=== PATIENT | female | born 1960 | race Caucasian/White ===

== ENCOUNTER 2016-10-31 12:32 | Emergency (ER) | payer BC ==
--- NOTE | 2016-10-31 12:51 | ER Document Report ---
ED Medical Screen (RME) - General Chief Complaint: Leg Pain Stated Complaint: RIGHT LEG PAIN Mode of Arrival: Ambulatory Information source: Patient Notes: 55 y/o F presents to ED c/o intermittent pain to right posterior lower leg/knee area. Denies swelling, redness, or paresthesias. I have greeted and performed a rapid initial assessment of this patient. A comprehensive ED assessment and evaluation of the patient, analysis of test results and completion of the medical decision making process will be conducted by additional ED providers. TRAVEL OUTSIDE OF THE [place] IN LAST 30 DAYS: No - Related Data Allergies/Adverse Reactions: No Known Allergies Allergy (Unverified 10/31/16 12:42) Past Medical History - Social History Chew tobacco use (# tins/day): No Frequency of alcohol use: None Drug Abuse: None Renal/ Medical History: Denies: Hx Peritoneal Dialysis Physical Exam - Vital signs Vitals: Temp Pulse Resp BP Pulse Ox 97.8 F 94 16 171/82 H 99 10/31/16 12:39 10/31/16 12:39 10/31/16 12:39 10/31/16 12:39 10/31/16 12:39 - General General appearance: Appears well, Alert In distress: None - Respiratory Respiratory status: No respiratory distress - Cardiovascular Rhythm: Regular Pulses: Normal: Radial Normal capillary refill: Yes Course - Vital Signs Vital signs: Temp Pulse Resp BP Pulse Ox 97.8 F 94 16 171/82 H 99 10/31/16 12:39 10/31/16 12:39 10/31/16 12:39 10/31/16 12:39 10/31/16 12:39
--- NOTE | 2016-10-31 13:31 | ER Document Report ---
ED Extremity Problem, Lower - General Chief Complaint: Leg Pain Stated Complaint: RIGHT LEG PAIN Mode of Arrival: Ambulatory TRAVEL OUTSIDE OF THE [place] IN LAST 30 DAYS: No - Related Data Allergies/Adverse Reactions: No Known Allergies Allergy (Unverified 10/31/16 12:42) Past Medical History - General Information source: Patient - Social History Smoking Status: Never Smoker Chew tobacco use (# tins/day): No Frequency of alcohol use: None Drug Abuse: None Patient has suicidal ideation: No Patient has homicidal ideation: No Renal/ Medical History: Denies: Hx Peritoneal Dialysis Physical Exam - Vital signs Vitals: Temp Pulse Resp BP Pulse Ox 97.8 F 94 16 171/82 H 99 10/31/16 12:39 10/31/16 12:39 10/31/16 12:39 10/31/16 12:39 10/31/16 12:39 Course - Re-evaluation Re-evalutation: 10/31/16 13:[address] Pacheco regarding patient presentation. Agrees plan for Doppler study of lower extremity. - Vital Signs Vital signs: Temp Pulse Resp BP Pulse Ox 97.8 F 94 16 171/82 H 99 10/31/16 12:39 10/31/16 12:39 10/31/16 12:39 10/31/16 12:39 10/31/16 12:39
--- NOTE | 2016-10-31 13:33 | ER Document Report ---
ED Extremity Problem, Lower - General Chief Complaint: Leg Pain Stated Complaint: RIGHT LEG PAIN Mode of Arrival: Ambulatory Information source: Patient Notes: Patient presents complaining of right popliteal leg pain off and on for several months that worsened over the past 3 days. Patient denies any chest pain or shortness of breath. Patient denies any recent immobilization, history of DVT, or history of PE. Patient is concerned about possible DVT and would like a Doppler performed. TRAVEL OUTSIDE OF THE [place] IN LAST 30 DAYS: No - HPI Patient complains to provider of: Pain, Swelling Location: Knee - Popliteal, Leg - Calf Occurred: Other - Off and on for several months, worse over the past 3 days Onset/Duration: Worse Quality of pain: Achy Pain Level: 3 Context: denies: Recent immobilization, Recent travel Recent injury: No Associated symptoms: Painful ambulation Exacerbated by: Nothing Relieved by: Nothing - Related Data Allergies/Adverse Reactions: No Known Allergies Allergy (Unverified 10/31/16 12:42) Past Medical History - General Information source: Patient - Social History Smoking Status: Never Smoker Chew tobacco use (# tins/day): No Frequency of alcohol use: None Drug Abuse: None Occupation: [employer] Lives with: Family Family History: Reviewed & Not Pertinent Patient has suicidal ideation: No Patient has homicidal ideation: No - Past Medical History Cardiac Medical History: Reports: Hx Hypertension Renal/ Medical History: Denies: Hx Peritoneal Dialysis Malignancy Medical History: Reports: Hx Colorectal Cancer Psychiatric Medical History: Reports: Hx Anxiety Past Surgical History: Reports: Hx Bowel Surgery Review of Systems - Review of Systems Constitutional: No symptoms reported. denies: Fever, Recent illness EENT: No symptoms reported Cardiovascular: Edema - Right lower extremity. denies: Chest pain, Palpitations Respiratory: No symptoms reported. denies: Cough, Short of breath Gastrointestinal: No symptoms reported. denies: Abdominal pain, Nausea, Vomiting Genitourinary: No symptoms reported Female Genitourinary: No symptoms reported Musculoskeletal: Muscle pain - Right lower extremity. denies: Back pain Skin: No symptoms reported Hematologic/Lymphatic: No symptoms reported Neurological/Psychological: No symptoms reported Physical Exam - Vital signs Vitals: Temp Pulse Resp BP Pulse Ox 97.8 F 94 16 171/82 H 99 10/31/16 12:39 10/31/16 12:39 10/31/16 12:39 10/31/16 12:39 10/31/16 12:39 - General General appearance: Appears well, Alert In distress: None - HEENT Head: Normocephalic, Atraumatic Eyes: Normal Nasal: Normal Mouth/Lips: Normal Neck: Normal, Supple. No: Lymphadenopathy - Respiratory Respiratory status: No respiratory distress Chest status: Nontender Breath sounds: Normal. No: Rales, Rhonchi, Stridor, Wheezing Chest palpation: Normal - Cardiovascular Rhythm: Regular Heart sounds: S1 appreciated, S2 appreciated Murmur: No - Back Back: Normal. No: CVA tenderness - Extremities General upper extremity: Normal inspection, Normal ROM General lower extremity: Edema - 1+ right lower extremity, Normal color, Normal ROM, Normal strength, Normal temperature Calf: Tender - Proximal right calf tenderness - Neurological Neuro grossly intact: Yes Cognition: Normal [place] Coma Scale Eye Opening: Spontaneous [place] Coma Scale Verbal: Oriented [place] Coma Scale Motor: Obeys Commands [place] Coma Scale Total: 15 - Psychological Associated symptoms: Normal affect, Normal mood - Skin Skin Temperature: Warm Skin Moisture: Dry Skin Color: Normal Course - Re-evaluation Re-evalutation: 10/31/16 13:[address] Pacheco regarding patient presentation, agrees with plan for Doppler study. 10/31/16 16:44 Dr. Smart called report results for Doppler negative for DVT 10/31/16 16:44 Discussed plan of care with patient, patient advised to follow-up with her primary doctor for recheck. Discussed worsening signs or symptoms that patient should return to [facility] for. Patient verbalized understanding of instructions and plan of care. - Vital Signs Vital signs: Temp Pulse Resp BP Pulse Ox 98.3 F 70 16 150/75 H 97 10/31/16 16:54 10/31/16 16:54 10/31/16 16:54 10/31/16 16:54 10/31/16 16:54 - Laboratory Result Diagrams: 10/31/16 14:30 10/31/16 14:30 Laboratory results interpreted by me: 10/31/16 14:30 Hct 35.9 L RDW 14.3 H Labs- Entire Visit 10/31/16 10/31/16 10/31/16 14:30 14:30 14:30 WBC 7.7 RBC 4.02 Hgb 12.1 Hct 35.9 L MCV 89 MCH 30.0 MCHC 33.7 RDW 14.3 H Plt Count 306 Seg Neutrophils % 56.1 Lymphocytes % 35.1 Monocytes % 7.5 Eosinophils % 1.1 Basophils % 0.2 Absolute Neutrophils 4.3 Absolute Lymphocytes 2.7 Absolute Monocytes 0.6 Absolute Eosinophils 0.1 Absolute Basophils 0.0 PT 12.0 INR 0.86 APTT 24.5 Sodium 142.8 Potassium 3.8 Chloride 106 Carbon Dioxide 26 Anion Gap 11 BUN 13 Creatinine 0.53 Est GFR ( Amer) > 60 Est GFR (Non-Af Amer) > 60 Glucose 86 Calcium 9.8 Total Bilirubin 0.5 Direct Bilirubin 0.0 AST 28 ALT 52 Alkaline Phosphatase 85 Total Protein 6.6 Albumin 4.0 10/31/16 18:14 - Diagnostic Test Radiology reviewed: Reports reviewed Discharge - Discharge Clinical Impression: Hx of essential hypertension, Right calf pain Condition: Stable Disposition: HOME, SELF-CARE Instructions: High Blood Pressure ([facility]), Muscle Strain ([facility]), Oral Narcotic Medication ([facility]) Additional Instructions: Return immediately for any new or worsening symptoms Followup with your primary care provider, call tomorrow to make a followup appointment Follow-up with your primary care provider for recheck. Your blood pressure was elevated today, recheck with primary doctor to have this rechecked. Your doctor may need to adjust your blood pressure medications. Prescriptions: Hydrocodone/Acetaminophen [[place] 5-325 Tablet] 1 each PO Q8 PRN #12 tablet PRN Reason: Forms: Elevated Blood Pressure, Return to Work Referrals: LANDRY IVERSON MD [Primary Care Provider] - Follow up tomorrow
[2016-10-31 14:48] LABS: ABSOLUTE EOSINOPHILS # (AUTO) 0.1 10^3/uL (0.0-0.6); ABSOLUTE LYMPHOCYTES (AUTO) 2.7 10^3/uL (0.5-4.7); ABSOLUTE MONOCYTES (AUTO) 0.6 10^3/uL (0.1-1.4); ABSOLUTE NEUT (AUTO) 4.3 10^3/uL (1.7-8.2); BASOPHILS % (AUTO) 0.2 % (0-2); EOSINOPHILS % (AUTO) 1.1 % (0-6); HEMATOCRIT 35.9 % (36.0-47.0); HEMOGLOBIN 12.1 g/dL (12.0-15.5); HGB HCT DIFFERENCE 0.4; LYMPHOCYTES % (AUTO) 35.1 % (13-45); MEAN CORPUSCULAR HGB CONC 33.7 g/dL (32.0-36.0); MEAN CORPUSCULAR VOLUME 89 fl (80-97); MONOCYTES % (AUTO) 7.5 % (3-13); RED BLOOD COUNT 4.02 10^6/uL (3.72-5.28); RED CELL DISTRIBUTION WIDTH 14.3 % (11.5-14.0); SEGMENTED NEUTROPHILS % (AUTO) 56.1 % (42-78); WHITE BLOOD COUNT 7.7 10^3/uL (4.0-10.5)
[2016-10-31 14:58] LABS: PARTIAL THROMBOPLASTIN TIME 24.5 SEC (23.5-35.8)
[2016-10-31 15:12] LABS: ALANINE AMINOTRANSFERASE 52 U/L (9-52); ALKALINE PHOSPHATASE 85 U/L (38-126); ANION GAP 11 (5-19); ASPARTATE AMINO TRANSFERASE 28 U/L (14-36); BILIRUBIN,TOTAL 0.5 mg/dL (0.2-1.3); BLOOD UREA NITROGEN 13 mg/dL (7-20); CALCIUM 9.8 mg/dL (8.4-10.2); CARBON DIOXIDE 26 mmol/L (22-30); CHLORIDE 106 mmol/L (98-107); CREATININE RESULT 0.53 mg/dL (0.52-1.25); GLUCOSE 86 mg/dL (75-110); POTASSIUM 3.8 mmol/L (3.6-5.0); SODIUM 142.8 mmol/L (137-145); TOTAL PROTEIN 6.6 g/dL (6.3-8.2)
--- NOTE | 2016-10-31 16:11 | XCELERA REPORT ---
[address] [address] Lower Extremity Venous Evaluation Name: FRANKO RAE Age: 55 yrs Gender: Female : 1960 Patient Status: Emergency Patient Location: ER Study Date: 10/31/2016 03:02 PM Procedure: Color flow and duplex imaging of the veins of the right lower extremity as well as the left Common Femoral vein. Reason For Study: RLE pain Ordering Physician: BROCK VALENZUELA Performed By: Elizabeth Morrison Right Sided Venous Evaluation Normal vessel filling wall to wall, compression and augmentation as well as Colour flow down to the infrageniculate veins. Left Sided Venous Evaluation The left common femoral vein is fully compressible. Spontaneous and phasic flow is present in the left common femoral vein. Critical Findings Called in to ER provider at 1605. Interpretation Summary No duplex evidence of DVT or obstruction in the right lower extremity nor in the left Common Femoral vein. : BROCK VALENZUELA > Mulugeta Smart
[2016-10-31 16:58] VITALS: BP 150/75
== END 2016-10-31 16:58 | disposition home or self-care (01) ==
LOC: ER 12:32
DX: M79.604 Pain in right leg (principal); I10 Essential (primary) hypertension
CPT/HCPCS: 36415; 80053; 85025; 85610; 85730; 93971; 99284

== ENCOUNTER → 2017-02-21 | Outpatient (CLI) | payer BC ==
[2017-02-21 13:08] LABS: ABSOLUTE EOSINOPHILS # (AUTO) 0.1 10^3/uL (0.0-0.6); ABSOLUTE LYMPHOCYTES (AUTO) 1.9 10^3/uL (0.5-4.7); ABSOLUTE MONOCYTES (AUTO) 0.7 10^3/uL (0.1-1.4); ABSOLUTE NEUT (AUTO) 4.7 10^3/uL (1.7-8.2); BASOPHILS % (AUTO) 0.1 % (0-2); EOSINOPHILS % (AUTO) 1.2 % (0-6); HEMATOCRIT 38.6 % (36.0-47.0); HEMOGLOBIN 12.8 g/dL (12.0-15.5); HGB HCT DIFFERENCE -0.2; LYMPHOCYTES % (AUTO) 25.7 % (13-45); MEAN CORPUSCULAR HEMOGLOBIN 29.7 pg (27.0-33.4); MEAN CORPUSCULAR HGB CONC 33.2 g/dL (32.0-36.0); MEAN CORPUSCULAR VOLUME 90 fl (80-97); RED BLOOD COUNT 4.31 10^6/uL (3.72-5.28); RED CELL DISTRIBUTION WIDTH 14.6 % (11.5-14.0); WHITE BLOOD COUNT 7.4 10^3/uL (4.0-10.5)
[2017-02-21 13:34] LABS: ALANINE AMINOTRANSFERASE 47 U/L (9-52); ALBUMIN 4.1 g/dL (3.5-5.0); ALKALINE PHOSPHATASE 62 U/L (38-126); ANION GAP 13 (5-19); ASPARTATE AMINO TRANSFERASE 28 U/L (14-36); BILIRUBIN,DIRECT 0.3 mg/dL (0.0-0.4); BILIRUBIN,TOTAL 0.3 mg/dL (0.2-1.3); BLOOD UREA NITROGEN 15 mg/dL (7-20); CALCIUM 9.8 mg/dL (8.4-10.2); CARBON DIOXIDE 25 mmol/L (22-30); CHLORIDE 106 mmol/L (98-107); CREATININE RESULT 0.57 mg/dL (0.52-1.25); GLUCOSE 95 mg/dL (75-110); POTASSIUM 3.5 mmol/L (3.6-5.0); SODIUM 143.6 mmol/L (137-145)
[2017-02-21 14:29] LABS: ADD ON TESTING BLD IN LAB ACKNOWLEDGE
[2017-02-21 14:41] LABS: MAGNESIUM 2.1 mg/dL (1.6-2.3)
== END ==
LOC: OD 12:37
PROVIDERS: ATTEND Family Medicine
DX: E87.6 Hypokalemia (principal); D34 Benign neoplasm of thyroid gland; E55.9 Vitamin D deficiency, unspecified; Z79.899 Other long term (current) drug therapy
CPT/HCPCS: 36415; 80053; 82306; 83735; 84443; 85025

== ENCOUNTER → 2017-04-26 | Outpatient (CLI) | payer BC ==
--- NOTE | 2017-04-26 22:01 | WOMENS IMAGING REPORT ---
EXAM DESCRIPTION: 3D SCREENING MAMMO BILAT COMPLETED DATE/TIME: 04/26/2017 8:43 am REASON FOR STUDY: SCREENING MAMMO Z12.31 ENCNTR SCREEN MAMMOGRAM FOR MALIGNANT NEOPLASM OF LETA COMPARISON: 2012, 2015 TECHNIQUE: Standard craniocaudal and mediolateral oblique views of each breast recorded using digita l acquisition and breast tomosynthesis. Additional "push-back craniocaudal and mediolateral oblique images acquired. LIMITATIONS: None. FINDINGS: IMPLANTS: Bilateral subglandular implants. Findings present which are benign by mammographic criteria. No suspicious masses, calcifications or a rchitectural distortion. Read with the assistance of CAD. .[facility] - R2 Cenova Version 1.3 .[facility] - R2 Cenova Version 1.3 .[facility] - R2 Cenova Version 2.4 .[facility] - R2 Cenova Version 2.4 .[facility] - R2 Liner Machine Operator Version 9.2 Benign mammographic findings may include one or more of the following: Smooth masses, popcorn/rim/co arse calcifications, asymmetries, post-procedure changes, and lesions with long-standing stability. IMPRESSION: BENIGN MAMMOGRAPHIC FINDINGS. BIRADS 2 BREAST DENSITY: b. There are scattered areas of fibroglandular density. BIRAD: 2 BENIGN FINDING(S) RECOMMENDATION: ROUTINE SCREENING Please continue yearly bilateral screening tomosynthesis in April 2018 COMMENT: The patient has been notified of the results by letter per MQSA requirements. Additional no tification policies are in place for contacting patient with suspicious or incomplete findings. Quality ID #[id number]: The [employer] recommends an annual screening mammogram for women aged 40 years or over. This facility utilizes a reminder system to ensure that all patients receive reminder letters, and/or direct phone calls for appointments. This includes reminders for routine scr eening mammograms, diagnostic mammograms, or other Breast Imaging Interventions when appropriate. Th is patient will be placed in the appropriate reminder system. The [employer] (ACR) has developed recommendations for screening MRI of the breast s in certain patient populations, to be used in conjunction with mammography. Breast MRI surveillanc e may be appropriate for women with more than 20% lifetime risk of developing breast cancer as deter mined by genetic testing, significant family history of the disease, or history of mantle radiation f or Hodgkins Disease. ACR Practice Guidelines 2008. DBT Technology DBT is a type of tomographic mammography. With conventional mammography, overlapping breast tissue ma y make lesions difficult to detect, even with good compression. DBT uses an x-ray tube that rotates a round the breast, taking images at different angles. These images are then combined to create thin sl ices of the breast that the radiologist can view as a 3D reconstruction. The Hologic unit can perform full-field digital mammograms (2D imaging); or DBT (3D imaging); or both, in a combination mode that quickly performs both the mammogram and the tomosynthesis scan while the breast is still compressed. PQRS 6045F: Fluoroscopic imaging is not utilized for breast tomosynthesis. TECHNICAL DOCUMENTATION: FINDING NUMBER: (1) ASSESSMENT: (1) JOB ID: [id number] [email or web address]- All Rights Reserved
== END ==
LOC: WI 07:39
PROVIDERS: ATTEND Internal Medicine Medical Oncology
DX: Z12.31 Encounter for screening mammogram for malignant neoplasm of breast (principal)
CPT/HCPCS: 77063; G0202; 77067

== ENCOUNTER → 2017-05-18 | Outpatient (CLI) | payer BC ==
[2017-05-18 08:17] LABS: ABSOLUTE EOSINOPHILS # (AUTO) 0.1 10^3/uL (0.0-0.6); ABSOLUTE LYMPHOCYTES (AUTO) 2.2 10^3/uL (0.5-4.7); ABSOLUTE MONOCYTES (AUTO) 0.5 10^3/uL (0.1-1.4); ABSOLUTE NEUT (AUTO) 3.8 10^3/uL (1.7-8.2); BASOPHILS % (AUTO) 0.2 % (0-2); EOSINOPHILS % (AUTO) 1.3 % (0-6); HEMATOCRIT 38.8 % (36.0-47.0); HEMOGLOBIN 13.4 g/dL (12.0-15.5); HGB HCT DIFFERENCE 1.4; LYMPHOCYTES % (AUTO) 33.1 % (13-45); MEAN CORPUSCULAR HEMOGLOBIN 30.5 pg (27.0-33.4); MEAN CORPUSCULAR HGB CONC 34.5 g/dL (32.0-36.0); MEAN CORPUSCULAR VOLUME 88 fl (80-97); MONOCYTES % (AUTO) 7.9 % (3-13); RED BLOOD COUNT 4.38 10^6/uL (3.72-5.28); RED CELL DISTRIBUTION WIDTH 13.7 % (11.5-14.0); SEGMENTED NEUTROPHILS % (AUTO) 57.5 % (42-78); WHITE BLOOD COUNT 6.5 10^3/uL (4.0-10.5)
[2017-05-18 08:50] LABS: ALANINE AMINOTRANSFERASE 48 U/L (9-52); ALBUMIN 4.4 g/dL (3.5-5.0); ALKALINE PHOSPHATASE 81 U/L (38-126); ANION GAP 9 (5-19); ASPARTATE AMINO TRANSFERASE 31 U/L (14-36); BILIRUBIN,DIRECT 0.4 mg/dL (0.0-0.4); BILIRUBIN,TOTAL 0.4 mg/dL (0.2-1.3); BLOOD UREA NITROGEN 11 mg/dL (7-20); CALCIUM 10.1 mg/dL (8.4-10.2); CARBON DIOXIDE 29 mmol/L (22-30); CHLORIDE 107 mmol/L (98-107); CHOLESTEROL 181.06 mg/dL (0-200); CREATININE RESULT 0.59 mg/dL (0.52-1.25); Direct HDL 48 mg/dL (>40); GLUCOSE 100 mg/dL (75-110); POTASSIUM 4.4 mmol/L (3.6-5.0); SODIUM 145.3 mmol/L (137-145); TOTAL PROTEIN 6.9 g/dL (6.3-8.2); TRIGLYCERIDES 128 mg/dL (<150)
[2017-05-18 09:01] LABS: DIRECT LDL 116 mg/dL (<100)
== END ==
LOC: OD 07:30
PROVIDERS: ATTEND Family Medicine
DX: Z13.220 Encounter for screening for lipoid disorders (principal); Z79.899 Other long term (current) drug therapy
CPT/HCPCS: 36415; 80053; 80061; 85025

== ENCOUNTER → 2017-06-12 | Outpatient (CLI) | payer BC ==
[2017-06-14 16:08] LABS: LYME DISEASE IGG AND IGM AB <0.91 ISR (0.00-0.90)
== END ==
LOC: OD 12:40
PROVIDERS: ATTEND Family Medicine
DX: A69.20 Lyme disease, unspecified (principal); R73.01 Impaired fasting glucose
CPT/HCPCS: 36415; 83036; 86617; 86618

== ENCOUNTER 2017-09-14 12:15 | Emergency (ER) | payer BC ==
[2017-09-14] MEDS ORDERED: KETOROLAC TROMETHAMINE 60 MG/2 ML SDV IM ONE (13:32)
--- NOTE | 2017-09-14 13:33 | ER Document Report ---
ED Neck/Back Problem - General Chief Complaint: Back Pain Stated Complaint: BACK PAIN Time Seen by Provider: 09/14/17 13:17 Mode of Arrival: Ambulatory Information source: Patient Notes: 56-year-old female presents to ED for complaint of left lower back and abdominal pain with diarrhea. She had history of colon cancer had a colonoscopy in August 04 that showed no cancer she had a bowel resection of her right colon and rectum removed and it has been reversed. She does have a history of diverticulosis but no history of diverticulitis. She just got over a bout of C. difficile after a fecal transplant. TRAVEL OUTSIDE OF THE [place] IN LAST 30 DAYS: No - HPI Patient complains to provider of: Pain, Lower back Onset: Other - Several days Where: Home Onset: Gradual Timing: Waxing and waning, Still present Quality of pain: Sharp. denies: No pain, Achy, Burning, Cramping, Dull, Fullness, Pressure, Stabbing, Throbbing, Other Severity: Moderate Pain Level: 4 Recent injury: Possibly Associated symptoms: Like prior neck/back pain, Radiation to leg, Lower back pain. denies: Constipation, Fever, Incontinence, Motor loss, Numbness/tingling , Sensory loss, Unable to urinate Relieved by: Nothing Similar symptoms previously: Yes Recently seen / treated by doctor: No - Related Data Allergies/Adverse Reactions: No Known Allergies Allergy (Verified 09/14/17 12:16) Past Medical History - General Information source: Patient - Social History Smoking Status: Never Smoker Cigarette use (# per day): No Chew tobacco use (# tins/day): No Smoking Education Provided: No Frequency of alcohol use: None Drug Abuse: None Lives with: Family Family History: Reviewed & Not Pertinent Patient has suicidal ideation: No Patient has homicidal ideation: No - Past Medical History Cardiac Medical History: Reports: Hx Hypertension Pulmonary Medical History: Reports: None EENT Medical History: Reports: None Neurological Medical History: Reports: None Endocrine Medical History: Reports: None Renal/ Medical History: Reports: None Malignancy Medical History: Reports: Hx Colorectal Cancer GI Medical History: Reports: None, Hx Gastritis, Hx Colonoscopy, Hx Endoscopy. Denies: Hx Diverticulitis - Diverticulosis Musculoskeltal Medical History: Reports Hx Arthritis Skin Medical History: Reports None Psychiatric Medical History: Reports: Hx Anxiety, Hx Depression Traumatic Medical History: Reports: None Infectious Medical History: Reports: None Past Surgical History: Reports: Hx Abdominal Surgery - Lower anterior resection , Ileostomy reversal, Hx Bowel Surgery, Hx Breast Surgery - Breast augmentation , Hx Section Review of Systems - Review of Systems Constitutional: No symptoms reported EENT: No symptoms reported Cardiovascular: No symptoms reported Respiratory: No symptoms reported Gastrointestinal: Abdominal pain - Left lower, Diarrhea Genitourinary: No symptoms reported Female Genitourinary: No symptoms reported Musculoskeletal: Back pain - Left lower, Muscle pain, Muscle stiffness Skin: No symptoms reported Hematologic/Lymphatic: No symptoms reported Neurological/Psychological: No symptoms reported -: Yes All other systems reviewed and negative Physical Exam - Vital signs Vitals: Temp Pulse Resp BP Pulse Ox 98.7 F 98 16 141/81 H 97 09/14/17 12:22 09/14/17 12:22 09/14/17 12:22 09/14/17 12:22 09/14/17 12:22 Interpretation: Normal - General General appearance: Appears well, Alert - HEENT Head: Normocephalic, Atraumatic Eyes: Normal Pupils: PERRL - Respiratory Respiratory status: No respiratory distress Chest status: Nontender Breath sounds: Normal Chest palpation: Normal - Cardiovascular Rhythm: Regular Heart sounds: Normal auscultation Murmur: No - Abdominal Inspection: Healed incision Distension: No distension Bowel sounds: Normal Tenderness: Tender - Left upper and lower abdomen pain Organomegaly: No organomegaly. No: Hepatomegaly, Splenomegaly, Mass - Back Back: Normal, Tender - Left lower back pain. No: Deformity/step-off, CVA tenderness, Vertebra tenderness, Scars, Scoliosis, Wounds - Extremities General upper extremity: Normal inspection, Nontender, Normal color, Normal ROM , Normal temperature General lower extremity: Normal inspection, Nontender, Normal color, Normal ROM , Normal temperature, Normal weight bearing. No: Angela's sign - Neurological Neuro grossly intact: Yes Cognition: Normal Orientation: AAOx4 Commerce Coma Scale Eye Opening: Spontaneous Commerce Coma Scale Verbal: Oriented Henry Coma Scale Motor: Obeys Commands Henry Coma Scale Total: 15 Speech: Normal Motor strength normal: LUE, RUE, LLE, RLE Sensory: Normal - Psychological Associated symptoms: Normal affect, Normal mood - Skin Skin Temperature: Warm Skin Moisture: Dry Skin Color: Normal Course - Re-evaluation Re-evalutation: 09/14/17 15:[address] abdomen pelvis with patient as it was no acute changes. She has had a colon resection on the right large polyps and a removal of rectum for rectal cancer and a reversal of colostomy. She does have a UTI will be treated with Macrobid and was treated with Flexeril for her low back muscle pain. Patient to follow-up with her primary doctor. - Vital Signs Vital signs: Temp Pulse Resp BP Pulse Ox 97.4 F 77 16 154/90 H 98 09/14/17 15:04 09/14/17 15:04 09/14/17 15:04 09/14/17 15:04 09/14/17 15:04 - Laboratory Laboratory results interpreted by me: 09/14/17 13:36 Urine Ketones 20 H Ur Leukocyte Esterase MODERATE H - Diagnostic Test Radiology reviewed: Image reviewed, Reports reviewed Discharge - Discharge Clinical Impression: Left-sided low back pain with left-sided sciatica Qualifiers: Chronicity: acute Qualified Code(s): M54.42 - Lumbago with sciatica, left side UTI (urinary tract infection) Qualifiers: Urinary tract infection type: site unspecified Hematuria presence: without hematuria Qualified Code(s): N39.0 - Urinary tract infection, site not specified HTN (hypertension) Qualifiers: Hypertension type: unspecified Qualified Code(s): I10 - Essential (primary) hypertension Condition: Stable Disposition: HOME, SELF-CARE Additional Instructions: LOW BACK PAIN: Three out of every four people will have an episode of disabling back pain during their lifetime. Most commonly the pain is due to straining of the muscles and ligaments in the low back. Usual treatment includes: (1) Rest on a firm surface. Avoid lying on your stomach. (2) Ice pack the painful area. After a few days, gentle heat may be used intermittently to relax the area, or ice packs can be continued. (3) Medication may be needed -- muscle relaxers and antiinflammatory medicines are commonly used. (4) As the back improves, exercises are prescribed to strengthen the back and abdominal muscles. Your doctor will advise you on the proper care for your back at each stage in your recovery. You may be better in a few days -- or healing may take several weeks. If new symptoms of a "herniated disc" (radiation of pain, numbness, or tingling down the back of the leg or weakness in the leg) occur, you should be re-examined. Further testing may be necessary. URINARY TRACT INFECTION: Your evaluation indicates that you have a urinary tract infection. This is due to germs growing in the bladder. This is a common problem. This infection usually responds quickly to antibiotics. Your antibiotic should be taken exactly as prescribed. Drink plenty of fluids -- three to four quarts a day. Occasionally, a bladder anesthetic will be prescribed to help stop the feeling of urgency until the antibiotic has a chance to clear the infection. This may cause your urine to be dark orange. Certain urine infections require a culture. If the doctor obtained a culture, the results will be back in two days. You should call to see if a change in treatment is needed. A repeat urinalysis after you finish treatment is often recommended. The physician will let you know if further testing is required. Call the doctor if you develop fever, chills, flank pain, inability to urinate, or blood in the urine. NITROFURANTOIN (MACRODANTIN, MACROBID): You have received a prescription for nitrofurantoin (Macrodantin). This antibiotic is used for urinary tract infections. Women who are or nursing should notify the physician before taking this medicine. If you have ever had a problem caused by this medication in the past, be sure the physician is aware of it. Common side effects of this medicine include nausea, vomiting, or decreased appetite. Notify your physician if these side effects become severe. Immediately stop this medicine and call the physician if you develop cough , shortness of breath, chest pain, weakness, jaundice (yellow color of the skin and whites of the eyes), or a skin rash. MUSCLE RELAXERS: Muscle relaxing medications are usually prescribed for acute muscle spasm or injury to the neck and back. They are often combined with antiinflammatory pain medication for increased relief. You may stop the muscle relaxer when the pain and stiffness have improved. Start the medication again if spasms recur. Muscle relaxers may cause drowsiness, especially with the first dose. Do not operate machinery or drive while under the effects of the medication. Most muscle relaxers last up to 24 hours. Do not combine the medication with alcohol. ICE PACKS: Apply ice packs frequently against the painful area. Many different schedules are recommended, such as "20 minutes on, 20 minutes off" or "one hour ice, two hours rest." If you need to work, you may need to go longer between ice treatments. You should plan to have the area ice packed AT LEAST one fourth of the time. The ice should be applied over the wrap, tape, or splint, or over a layer of cloth -- not directly against the skin. Some ice bags have a built-in cloth and can be put directly on the skin. WARM PACKS: After approximately two days, apply gentle heat (such as a heating pad or hot water bottle) for about 20 to 30 minutes about every two hours -- at least four times daily. Warmth and elevation will help you make a more rapid recovery , and will ease the pain considerably. Do not use HOT heat, and never apply heat for longer than 30 minutes. The continuous heat can invisibly damage skin and muscles -- even when no burn is seen on the surface. Damaged muscles can make you MORE sore. Ibuprofen Ibuprofen is an excellent, safe drug for pain control. In addition, it has potent antiinflammatory effects which are beneficial, especially in the treatment of injuries, arthritis, or tendonitis. It's best to take ibuprofen with food. Persons with ulcer disease or allergy to aspirin should notify their physician of this before taking ibuprofen. Take the medication exactly as prescribed. Don't take additional doses unless instructed to do so by your doctor. If you develop wheezing, shortness of breath, hives, faintness, stomach pain, vomiting, or dark black stools, return for re-evaluation at once. Stretching Exercises for the Back The physician has recommended that you begin stretching exercises for your back. These are often used even while the back is painful. However, you should notify the physician if the activities seem to increase your pain. PELVIC TILT: Lie flat on your back with knees bent. Tighten your stomach and buttock muscles so it flattens your lower back against the floor. Hold 10 seconds. Repeat 10 times, twice daily. KNEE RAISE: Lying on the back with knees bent, raise one knee to your chest, then the other. Hold both knees against the chest 10 seconds, then lower one knee at a time. Repeat 10 times, twice daily. PARTIAL TRUNK RAISE: Lie face down, arms at your sides. Keeping your waist on the floor, use your arms raise your chest up. Support yourself on your elbows for 30 seconds. Repeat twice daily, increasing the time to two minutes as you recover. FOLLOW-UP CARE: If you have been referred to a physician for follow-up care, call the physician s office for an appointment as you were instructed or within the next two days. If you experience worsening or a significant change in your symptoms, notify the physician immediately or return to the Emergency Department at any time for re-evaluation. Prescriptions: Cyclobenzaprine HCl [Flexeril 10 mg Tablet] 10 mg PO TIDP PRN #15 tab PRN Reason: Nitrofurantoin/Nitrofuran Mac [Macrobid 100 mg Capsule] 1 tab PO BID #20 capsule Forms: Elevated Blood Pressure Referrals: LANDRY IVERSON MD [ACTIVE STAFF] - Follow up as needed
[2017-09-14 14:12] LABS: APPEARANCE,URINE SLIGHTLY-CLOUDY; BILIRUBIN,URINE NEGATIVE (NEGATIVE); COLOR,URINE YELLOW; GLUCOSE, URINE NEGATIVE (NEGATIVE); KETONES,URINE 20 mg/dL (NEGATIVE); LEUKOCYTE ESTERASE,URINE MODERATE (NEGATIVE); NITRITE,URINE NEGATIVE (NEGATIVE); PROTEIN,URINE NEGATIVE (NEGATIVE); URINE SPECIFIC GRAVITY 1.021; UROBILINOGEN,URINE NEGATIVE mg/dL (<2.0)
--- NOTE | 2017-09-14 14:22 | RADIOLOGY REPORT (SQ) ---
EXAM DESCRIPTION: CT ABD/PELVIS NO ORAL OR IV COMPLETED DATE/TIME: 09/14/2017 2:10 pm REASON FOR STUDY: left abdominal and low back pain COMPARISON: None. TECHNIQUE: CT scan of the abdomen and pelvis performed without intravenous or oral contrast. Images reviewed with lung, soft tissue, and bone windows. Reconstructed coronal and sagittal MPR images revi ewed. All images stored on PACS. All CT scanners at this facility use dose modulation, iterative reconstruction, and/or weight based d osing when appropriate to reduce radiation dose to as low as reasonably achievable (ALARA). [facility]: Dose Right [facility]: CareDose [facility]: Dose Right [facility]: Teradose 4D [facility]: Smart [employer] RADIATION DOSE: CT Rad equipment meets quality standard of care and radiation dose reduction techniq ues were employed. CTDIvol: 18.4 mGy. DLP: 1040 mGy-cm.mGy. LIMITATIONS: None. FINDINGS: LOWER CHEST: No significant findings. No nodules or infiltrates. NON-CONTRASTED LIVER, SPLEEN, ADRENALS: Evaluation limited by lack of IV contrast. No identified sign ificant masses. PANCREAS: No masses. No peripancreatic inflammatory changes. GALLBLADDER: No identified stones by CT criteria. No inflammatory changes to suggest cholecystitis. RIGHT KIDNEY AND URETER: No suspicious masses. Assessment limited by lack of IV contrast. No signif icant calcifications. No hydronephrosis or hydroureter. LEFT KIDNEY AND URETER: No suspicious masses. Assessment limited by lack of IV contrast. No signifi cant calcifications. No hydronephrosis or hydroureter. AORTA AND RETROPERITONEUM: No aneurysm. No retroperitoneal masses or adenopathy. BOWEL AND PERITONEAL CAVITY: Anastomosis rectosigmoid colon. Anastomosis hepatic flexure. No obviou s masses or inflammatory changes. No free fluid. APPENDIX: Surgically absent. PELVIS, BLADDER, AND ABDOMINAL WALL:No abnormal masses. No free fluid. Bladder normal. BONES: No acute findings. OTHER: No other significant finding. IMPRESSION: No acute abnormality in the abdomen or pelvis. COMMENT: Quality ID # [id number]: Final reports with documentation of one or more dose reduction techniques (e.g., Automated exposure control, adjustment of the mA and/or kV according to patient size, use of iterative reconstruction technique) TECHNICAL DOCUMENTATION: JOB ID: [id number]- All Rights Reserved
[2017-09-14] MEDS ORDERED: NITROFURANTOIN MONOHYD/M-CRYST 100 MG CAPSULE PO ONE (14:50)
[2017-09-14 15:08] VITALS: BP 154/90
== END 2017-09-14 15:08 | disposition home or self-care (01) ==
LOC: ER 12:15
DX: M54.9 Dorsalgia, unspecified (principal); M54.42 Lumbago with sciatica, left side; N39.0 Urinary tract infection, site not specified; I10 Essential (primary) hypertension
CPT/HCPCS: 99284; 96372; 81001; 74176; J1885; J8499

== ENCOUNTER → 2017-09-26 | Outpatient (CLI) | payer BC ==
--- NOTE | 2017-09-26 16:44 | RADIOLOGY REPORT (SQ) ---
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 CT chest with contrast from 2016. CONTRAST TYPE AND DOSE: contrast/concentration: Isovue 370.00 mg/ml; Total Contrast Delivered: 100.0 ml; Total Saline Delivered: 72.0 ml RENAL FUNCTION: GFR > 60. TECHNIQUE: CT scan of the chest performed using helical scanning technique with dynamic intravenous contrast injection. Images reviewed with lung, soft tissue and bone windows. Reconstructed coronal a nd sagittal MPR images reviewed. All images stored on PACS. CT scan of the abdomen and pelvis performed with intravenous and with oral contrastusing helical scan zoraida technique with dynamic intravenous contrast injection. Images reviewed with lung, soft tissue a nd bone windows. Reconstructed coronal and sagittal MPR images reviewed. Delayed images for evaluat ion of the urinary system also acquired and evaluated. All images stored on PACS. All CT scanners at this facility use dose modulation, iterative reconstruction, and/or weight based d osing when appropriate to reduce radiation dose to as low as reasonably achievable (ALARA). [facility]: Dose Right [facility]: CareDose [facility]: Dose Right [facility]: Teradose 4D [facility]: Smart [employer] RADIATION DOSE: CT Rad equipment meets quality standard of care and radiation dose reduction techniq ues were employed. CTDIvol: 13.2 - 22.5 mGy. DLP: 2928 mGy-cm. . LIMITATIONS: None. FINDINGS: CHEST: LUNGS AND PLEURA: No opacities, developing or suspicious nodules or masses. No pneumothorax. No effu sions. HILAR AND MEDIASTINAL STRUCTURES: No identified masses or abnormal nodes. HEART AND VASCULAR STRUCTURES: No aneurysm or dissection. No central pulmonary emboli. No pericardi al effusion. HARDWARE: None. THYROID AND OTHER SOFT TISSUES: Enlarged nodular right lobe thyroid, as before. Nonprogressive. No axillary adenopathy or developing chest wall mass. BONES: No significant finding. OTHER: No other significant finding. ABDOMEN AND PELVIS: LIVER: Fatty. No worrisome lesions. No duct dilatation. SPLEEN: Normal size. No focal lesions. PANCREAS: No masses. No significant calcifications. No adjacent inflammation or peripancreatic fluid collections. Pancreatic duct not dilated. GALLBLADDER: No identified stones by CT criteria. No inflammatory changes to suggest cholecystitis. ADRENAL GLANDS: No significant masses or asymmetry. RIGHT KIDNEY AND URETER: No solid masses. No significant calcification. No hydronephrosis or hydroure ter. LEFT KIDNEY AND URETER: No solid masses. No significant calcification. No hydronephrosis or hydrouret er. AORTA AND VESSELS: No aneurysm. No dissection. Renal arteries, SMA, celiac without stenosis. RETROPERITONEUM: No retroperitoneal adenopathy, hemorrhage or masses. BOWEL AND PERITONEAL CAVITY: Chronic colonic postoperative changes. No ascites or abnormal gas. No evidence of bulky adenopathy or implants. APPENDIX: Surgically absent. ABDOMINAL WALL: No masses. No hernias. BONES: No significant or acute findings. OTHER: No other significant finding. IMPRESSION: 1. No acute or suspicious chest, abdomen or pelvis abnormality. No suggestion of metast atic disease. 2. Fatty liver. NORMAL CT OF THE ABDOMEN AND PELVIS WITH ORAL AND INTRAVENOUS CONTRAST. TECHNICAL DOCUMENTATION: JOB ID: [id number] Quality ID # [id number]: Final reports with documentation of one or more dose reduction techniques (e.g., Au tomated exposure control, adjustment of the mA and/or kV according to patient size, use of iterative reconstruction technique) 2010 [employer]- All Rights Reserved
== END ==
LOC: RAD 15:34
PROVIDERS: ATTEND Internal Medicine Medical Oncology
DX: C19 Malignant neoplasm of rectosigmoid junction (principal); C20 Malignant neoplasm of rectum; R10.9 Unspecified abdominal pain
CPT/HCPCS: 71260; 74177; 82565

== ENCOUNTER → 2018-06-26 | Outpatient (CLI) | payer BC ==
--- NOTE | 2018-06-26 13:16 | WOMENS IMAGING REPORT ---
EXAM DESCRIPTION: 3D SCREENING MAMMO BILAT COMPLETED DATE/TIME: 06/26/2018 7:16 am REASON FOR STUDY: SCREENING MAMMO Z12.31 ENCNTR SCREEN MAMMOGRAM FOR MALIGNANT NEOPLASM OF LETA COMPARISON: 2012, 2015, 2016 TECHNIQUE: Standard craniocaudal and mediolateral oblique views of each breast recorded using digita l acquisition and breast tomosynthesis. Additional "push-back craniocaudal and mediolateral oblique images acquired. LIMITATIONS: None. FINDINGS: IMPLANTS: Bilateral subglandular implants. Findings present which are benign by mammographic criteria. No suspicious masses, calcifications or a rchitectural distortion. Read with the assistance of CAD. .[facility] - R2 Cenova Version 1.3 .[facility] Imaging - R2 Cenova Version 1.3 .[facility] - R2 Cenova Version 2.4 .[facility] [place] R2 Cenova Version 2.4 .[facility] - R2 [employer] Machine Mechanic Version 9.2 Benign mammographic findings may include one or more of the following: Smooth masses, popcorn/rim/co arse calcifications, asymmetries, post-procedure changes, and lesions with long-standing stability. IMPRESSION: BENIGN MAMMOGRAPHIC FINDINGS. BIRADS 2 BREAST DENSITY: b. There are scattered areas of fibroglandular density. BIRAD: 2 BENIGN FINDING(S) RECOMMENDATION: ROUTINE SCREENING COMMENT: The patient has been notified of the results by letter per MQSA requirements. Additional no tification policies are in place for contacting patient with suspicious or incomplete findings. Quality ID #[id number]: The [employer] recommends an annual screening mammogram for women aged 40 years or over. This facility utilizes a reminder system to ensure that all patients receive reminder letters, and/or direct phone calls for appointments. This includes reminders for routine scr eening mammograms, diagnostic mammograms, or other Breast Imaging Interventions when appropriate. Th is patient will be placed in the appropriate reminder system. The [employer] (ACR) has developed recommendations for screening MRI of the breast s in certain patient populations, to be used in conjunction with mammography. Breast MRI surveillanc e may be appropriate for women with more than 20% lifetime risk of developing breast cancer as deter mined by genetic testing, significant family history of the disease, or history of mantle radiation f or Hodgkins Disease. ACR Practice Guidelines 2008. DBT Technology DBT is a type of tomographic mammography. With conventional mammography, overlapping breast tissue ma y make lesions difficult to detect, even with good compression. DBT uses an x-ray tube that rotates a round the breast, taking images at different angles. These images are then combined to create thin sl ices of the breast that the radiologist can view as a 3D reconstruction. The Glyde unit can perform full-field digital mammograms (2D imaging); or DBT (3D imaging); or both, in a combination mode that quickly performs both the mammogram and the tomosynthesis scan while the breast is still compressed. PQRS 6045F: Fluoroscopic imaging is not utilized for breast tomosynthesis. TECHNICAL DOCUMENTATION: FINDING NUMBER: (1) ASSESSMENT: (1) JOB ID: [id number] [employer]- All Rights Reserved Reading location - IP/workstation name: [email or web address]
== END ==
LOC: WI 06:53
PROVIDERS: ATTEND Nurse Practitioner
DX: Z12.31 Encounter for screening mammogram for malignant neoplasm of breast (principal); Z98.82 Breast implant status
CPT/HCPCS: 77063; 77067

== ENCOUNTER → 2019-10-04 | Outpatient (CLI) | payer BC ==
--- NOTE | 2019-10-07 12:56 | WOMENS IMAGING REPORT ---
EXAM DESCRIPTION: 3D SCREENING MAMMO BILAT COMPLETED DATE/TIME: 10/04/2019 1:07 pm REASON FOR STUDY: Z12.31 3D BILATERAL SCREENING MAMMOGRAM Z12.31 ENCNTR SCREEN MAMMOGRAM FOR MALIGN ANT NEOPLASM OF LETA COMPARISON: 2012 and subsequent. EXAM PARAMETERS: Standard craniocaudal and mediolateral oblique views of each breast recorded using digital acquisition and breast tomosynthesis. Additional "push-back craniocaudal and mediolateral ob lique images acquired. Read with the assistance of CAD. .[facility] - R2 Image Scientist Version 9.2 LIMITATIONS: None. FINDINGS: IMPLANTS: Bilateral subglandular implants. Findings present which are benign by mammographic criteria. No suspicious masses, calcifications or a rchitectural distortion. Benign mammographic findings may include one or more of the following: Smooth masses, popcorn/rim/co arse calcifications, asymmetries, post-procedure changes, and lesions with long-standing stability. IMPRESSION: BENIGN MAMMOGRAPHIC FINDINGS. BIRADS 2 BREAST DENSITY: b. There are scattered areas of fibroglandular density. BIRAD: ASSESSMENT: 2 BENIGN FINDING(S) RECOMMENDATION: ROUTINE SCREENING COMMENT: The patient has been notified of the results by letter per MQSA requirements. Additional no tification policies are in place for contacting patient with suspicious or incomplete findings. Quality ID #[id number]: The [employer] recommends an annual screening mammogram for women aged 40 years or over. This facility utilizes a reminder system to ensure that all patients receive reminder letters, and/or direct phone calls for appointments. This includes reminders for routine scr eening mammograms, diagnostic mammograms, or other Breast Imaging Interventions when appropriate. Th is patient will be placed in the appropriate reminder system. TECHNICAL DOCUMENTATION: FINDING NUMBER: (1) ASSESSMENT: (1) JOB ID: [id number] [employer]- All Rights Reserved Reading location - IP/workstation name: [email or web address]
== END ==
LOC: WI 12:41
PROVIDERS: ATTEND Nurse Practitioner
DX: Z12.31 Encounter for screening mammogram for malignant neoplasm of breast (principal); Z98.82 Breast implant status
CPT/HCPCS: 77063; 77067

== ENCOUNTER 2020-06-08 07:33 | Emergency (ER) | payer BC ==
[2020-06-08 08:44] LABS: APPEARANCE,URINE SLIGHTLY-CLOUDY; BILIRUBIN,URINE NEGATIVE (NEGATIVE); COLOR,URINE YELLOW; GLUCOSE, URINE NEGATIVE (NEGATIVE); KETONES,URINE NEGATIVE (NEGATIVE); LEUKOCYTE ESTERASE,URINE NEGATIVE (NEGATIVE); NITRITE,URINE NEGATIVE (NEGATIVE); PROTEIN,URINE 30 mg/dL (NEGATIVE); URINE SPECIFIC GRAVITY 1.026; UROBILINOGEN,URINE NEGATIVE mg/dL (<2.0)
[2020-06-08] MEDS ORDERED: ONDANSETRON 4 MG TAB.RAPDIS PO ONE (10:08)
[2020-06-08] MEDS ORDERED: KETOROLAC TROMETHAMINE 60 MG/2 ML SDV IM ONE (10:08)
--- NOTE | 2020-06-08 11:57 | RADIOLOGY REPORT (SQ) ---
EXAM DESCRIPTION: L SPINE 2 VIEWS IMAGES COMPLETED DATE/TIME: 06/08/2020 11:22 am REASON FOR STUDY: pain COMPARISON: None. NUMBER OF VIEWS: Two views. TECHNIQUE: AP and lateral radiographic images acquired of the lumbar spine. LIMITATIONS: None. FINDINGS: MINERALIZATION: Normal. SEGMENTATION: 5 xjo-wph-chexnrh lumbar vertebral bodies. ALIGNMENT: Straightening of the normal lumbar lordosis. VERTEBRAE: Maintained height. No fracture or worrisome bone lesion. DISCS: Mild disc height loss and endplate change at L3-4. POSTERIOR ELEMENTS: Pedicles and facets are intact. No pars defect or posterior arch defects. Minim al lower lumbar facet arthropathy. HARDWARE: None in the spine. PARASPINAL SOFT TISSUES: Vascular calcifications. PELVIS: Intact as visualized. No fractures or worrisome bone lesions. SI joints intact. OTHER: No other significant finding. IMPRESSION: No evidence of acute bony abnormality of the lumbar spine. Mild degenerative disc disease greatest at L3-4. TECHNICAL DOCUMENTATION: JOB ID: [id number] 2010 [email or web address]- All Rights Reserved Reading location - IP/workstation name: [email or web address]
--- NOTE | 2020-06-08 12:39 | ER Document Report ---
ED General - General Chief Complaint: Back Pain Stated Complaint: BACK PAIN Time Seen by Provider: 06/08/20 09:08 Primary Care Provider: GABINO BANKS NP [Primary Care Provider] - Follow up as needed Mode of Arrival: Ambulatory Information source: Patient TRAVEL OUTSIDE OF THE [place] IN LAST 30 DAYS: No - HPI Notes: Patient states she is been having some mid central to left lower back pain for proxy 1 week. She states this morning she bent over and then had a sudden pain in the central and left lower back. It is severe. It is worse with movement and better with rest. It does not radiate. It is sharp. She denies any problems with urination or bowel movements. No numbness or abnormal sensations. No abdominal pain vomiting or diarrhea. No fevers. No other trauma. - Related Data Allergies/Adverse Reactions: No Known Allergies Allergy (Verified 06/08/20 09:46) Past Medical History - General Information source: Patient - Social History Smoking Status: Former Smoker Frequency of alcohol use: None Drug Abuse: None Family History: Reviewed & Not Pertinent - Past Medical History Cardiac Medical History: Reports: Hx Hypertension Renal/ Medical History: Denies: Hx Peritoneal Dialysis Malignancy Medical History: Reports: Hx Colorectal Cancer GI Medical History: Reports: Hx Gastritis, Hx Colonoscopy, Hx Endoscopy. Denies: Hx Diverticulitis - Diverticulosis Musculoskeletal Medical History: Reports Hx Arthritis Psychiatric Medical History: Reports: Hx Anxiety, Hx Depression Past Surgical History: Reports: Hx Abdominal Surgery - Lower anterior resection, Ileostomy reversal, Hx Bowel Surgery, Hx Breast Surgery - Breast augmentation, Hx Section Review of Systems - Review of Systems Constitutional: denies: Chills, Fever Cardiovascular: denies: Chest pain, Palpitations Respiratory: denies: Cough, Short of breath -: Yes All other systems reviewed and negative Physical Exam - Vital signs Vitals: Temp Pulse Resp BP Pulse Ox 98.3 F 83 20 180/111 H 96 06/08/20 07:39 06/08/20 07:39 06/08/20 07:39 06/08/20 07:39 06/08/20 07:39 Interpretation: Hypertensive - General General appearance: Appears well, Alert - HEENT Head: Normocephalic, Atraumatic Eyes: Normal Pupils: PERRL - Respiratory Respiratory status: No respiratory distress Chest status: Nontender Breath sounds: Normal Chest palpation: Normal - Cardiovascular Rhythm: Regular Heart sounds: Normal auscultation Murmur: No - Abdominal Inspection: Normal Distension: No distension Bowel sounds: Normal Tenderness: Nontender Organomegaly: No organomegaly - Back Back: Normal, Tender - Mid central and left lateral lumbar area is tender. Inspection of this area is unremarkable. - Extremities General upper extremity: Normal inspection, Nontender, Normal color, Normal ROM, Normal temperature General lower extremity: Normal inspection, Nontender, Normal color, Normal ROM, Normal temperature, Normal weight bearing. No: Angela's sign - Neurological Neuro grossly intact: Yes Cognition: Normal Orientation: AAOx4 [place] Coma Scale Eye Opening: Spontaneous [place] Coma Scale Verbal: Oriented [place] Coma Scale Motor: Obeys Commands [place] Coma Scale Total: 15 Speech: Normal Motor strength normal: LUE, RUE, LLE, RLE Sensory: Normal - Psychological Associated symptoms: Normal affect, Normal mood - Skin Skin Temperature: Warm Skin Moisture: Dry Skin Color: Normal Course - Vital Signs Vital signs: Temp Pulse Resp BP Pulse Ox 98.3 F 83 20 180/111 H 96 06/08/20 08:23 06/08/20 08:23 06/08/20 08:23 06/08/20 08:23 06/08/20 08:23 - Laboratory Laboratory results interpreted by me: 06/08/20 08:24 Urine Protein 30 H - Diagnostic Test Radiology reviewed: Image reviewed, Reports reviewed Discharge - Discharge Clinical Impression: Lumbar strain Qualifiers: Encounter type: initial encounter Qualified Code(s): S39.012A - Strain of muscle, fascia and tendon of lower back, initial encounter Condition: Stable Disposition: HOME, SELF-CARE Instructions: Low Back Pain ([facility]), Muscle Strain ([facility]) Prescriptions: Hydrocodone/Acetaminophen [[place] 5-325 mg Tablet] 1 tab PO Q6 PRN 3 Days #12 tablet PRN Reason: For Pain Forms: Return to Work Referrals: GABINO BANKS NP [Primary Care Provider] - Follow up as needed
[2020-06-08 12:49] VITALS: BP 185/88
== END 2020-06-08 12:47 | disposition home or self-care (01) ==
LOC: ER 07:33
DX: S39.012A Strain of muscle, fascia and tendon of lower back, initial encounter (principal); X58.XXXA Exposure to other specified factors, initial encounter; M51.36 Other intervertebral disc degeneration, lumbar region; I10 Essential (primary) hypertension; Z87.891 Personal history of nicotine dependence; Z85.048 Personal history of other malignant neoplasm of rectum, rectosigmoid junction, and anus
CPT/HCPCS: 99284; 96372; 81001; 72100; J1885; S0119